=== PATIENT | female | born 1990 | race American Indian/Alaskan Native ===

== ENCOUNTER 2016-04-24 08:41 | Emergency (ER) | payer MEDICAID ==
[2016-04-24 09:15] VITALS: BP 132/78
--- NOTE | 2016-04-24 09:39 | Emergency Department Report ---
Chief Complaint: Vaginal Bleeding Stated Complaint: 8 WKS W/SPOTTING /CRAMPING Time Seen by Provider: 04/24/16 09:36 - HPI History of Present Illness: Patient here reports she is 8 weeks and said that her was verified at a clinic. Her last menstrual period was February 29, 2016. She reports spotting for 2 days and using 1-2 pads today. Denies passing any clots. reports pain to pelvic area 6 out of 10 and cramping. Denies any nausea or vomiting. Denies urinary burning frequency or urgency.. - ROS Review of Systems: All systems are negative unless stated in HPI above. - Exam Vital Signs: Vital Signs 04/24/16 09:12 Temperature 98.8 F Pulse Rate 87 Respiratory 16 Rate Blood Pressure 132/78 O2 Sat by Pulse 98 Oximetry Physical Exam: Gen: This is a 26-year-old female well-nourished well-developed in no acute distress. Abdomen: Mild tenderness to right pelvic area. No guarding or rebound tenderness. Normal bowel sounds. CV: S1, S2. Regular rate and rhythm. MSE screening note: Focused history and physical exam performed. Due to findings the following was ordered:see [facility] [place] ED Medical Decision Making - Medical Decision Making Medical decision making: Patient seen by provider in triage area. Appropriate protocol activated and patient to main ED to be seen by physician. ED Disposition for MSE Condition: Stable
[2016-04-24 09:56] LABS: Basophils % (Auto) 0.3 % (0.0-1.8); Eosinophils % (Auto) 2.1 % (0.0-4.3); Hematocrit 34.1 % (30.3-42.9); Hemoglobin 10.8 gm/dl (10.1-14.3); Mean Corpuscular HGB Conc 32 % (30-34); Mean Corpuscular Volume 78 fl (79-97); Platelet Count 237 K/mm3 (140-440); Red Blood Count 4.35 M/mm3 (3.65-5.03); White Blood Count 11.8 K/mm3 (4.5-11.0)
[2016-04-24 09:57] LABS: Mean Corpuscular Hemoglobin 25 pg (28-32)
[2016-04-24 12:14] LABS: Bacteria,Urine 1+ /HPF (Negative); Bilirubin,Urine NEG (Negative); Blood,Urine NEG (Negative); Ketones,Urine NEG (Negative); Leukocyte Esterase,Urine TR (Negative); Mucus,Urine FEW /HPF; Nitrite,Urine NEG (Negative); Protein,Urine <15 mg/dL mg/dL (Negative); Urobilinogen,Urine < 2.0 mg/dL (<2.0)
--- NOTE | 2016-04-26 19:22 | ED Elopement Review ---
ED Pt Elopement review - Results review Lab results: Laboratory Tests 04/24/16 04/24/16 04/24/16 09:41 09:41 09:41 WBC 11.8 H RBC 4.35 Hgb 10.8 Hct 34.1 MCV 78 L MCH 25 L MCHC 32 RDW 16.0 H Plt Count 237 Lymph % (Auto) 28.5 Marshall % (Auto) 9.6 H Eos % (Auto) 2.1 Baso % (Auto) 0.3 Lymph # 3.4 Marshall # 1.1 H Eos # 0.3 Baso # 0.0 Seg Neutrophils % 59.5 Seg Neutrophils # 7.0 HCG, Quant 2730 H Urine Color Urine Turbidity Urine pH Ur Specific [place] Urine Protein Urine Glucose (UA) Urine Ketones Urine Blood Urine Nitrite Urine Bilirubin Urine Urobilinogen Ur Leukocyte Esterase Urine WBC (Auto) Urine RBC (Auto) U Epithel Cells (Auto) Urine Bacteria (Auto) Urine Mucus Blood Type A POSITIVE Antibody Screen Negative 04/24/16 Unknown WBC RBC Hgb Hct MCV MCH MCHC RDW Plt Count Lymph % (Auto) Marshall % (Auto) Eos % (Auto) Baso % (Auto) Lymph # Marshall # Eos # Baso # Seg Neutrophils % Seg Neutrophils # HCG, Quant Urine Color Yellow Urine Turbidity Clear Urine pH 6.0 Ur Specific [place] 1.028 Urine Protein <15 mg/dl Urine Glucose (UA) Neg Urine Ketones Neg Urine Blood Neg Urine Nitrite Neg Urine Bilirubin Neg Urine Urobilinogen < 2.0 Ur Leukocyte Esterase Tr Urine WBC (Auto) 3.0 Urine RBC (Auto) 5.0 U Epithel Cells (Auto) 8.0 Urine Bacteria (Auto) 1+ Urine Mucus Few Blood Type Antibody Screen - Call Back decision Pt Call Back Decision: Call pt to return to ED YRN (, abdominal pain needs ultrasound to rule out ectopic)
== END 2016-04-24 19:00 | disposition left against medical advice (07) ==
LOC: ED 08:41
DX: O26.851 Spotting complicating pregnancy, first trimester (principal); R10.2 Pelvic and perineal pain; Z3A.08 8 weeks gestation of pregnancy; Z53.21 Procedure and treatment not carried out due to patient leaving prior to being seen by health care provider
CPT/HCPCS: 36415; 81001; 84702; 85025; 86850; 86900; 86901

== ENCOUNTER 2016-05-06 07:47 | Emergency (ER) | payer MEDICAID | END 2016-05-07 05:00 | disposition left against medical advice (07) | LOC: ED 07:47 | DX: R25.2 Cramp and spasm (principal); Z53.21 Procedure and treatment not carried out due to patient leaving prior to being seen by health care provider ==

== ENCOUNTER 2020-02-07 20:56 | Emergency (ER) | payer OTHER, MEDICAID ==
[2020-02-07 21:36] VITALS: BP 144/104
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
[2020-02-07] MEDS ORDERED: BUTALB/ACETAMINOPHEN/CAFFEINE TAB PO ONE (22:37)
[2020-02-07] MEDS ORDERED: diazePAM 5 MG TAB PO ONE (22:37)
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
== END 2020-02-07 23:35 | disposition home or self-care (01) ==
LOC: ED 20:56
DX: S09.90XA Unspecified injury of head, initial encounter (principal); S46.912A Strain of unspecified muscle, fascia and tendon at shoulder and upper arm level, left arm, initial encounter; Z79.899 Other long term (current) drug therapy; V49.49XA Driver injured in collision with other motor vehicles in traffic accident, initial encounter; Y93.89 Activity, other specified; Y92.410 Unspecified street and highway as the place of occurrence of the external cause; Y99.8 Other external cause status
CPT/HCPCS: 70450